=== PATIENT | female | born 1995 | race African-American/Black ===

== ENCOUNTER 2016-11-11 20:33 | Emergency (ER) | payer SELFPAY ==
[~2016-11-11] VITALS: Ht 157.5 cm; Wt 60.8 kg
[~2016-11-11 20:33] MED LIST: BENA25TA8 PO; EPIP0.3I IM; PRED50TA PO; Z.0.NO CURRENT MEDS; ZOFR4TAB3 SL
[2016-11-11 20:40] VITALS: BP 127/81; PULSE 99; RESP 18; O2SAT 99
[2016-11-11] MEDS ORDERED: SODIUM CHLORIDE 0.9% FLUSH 10 ML FLUSH IVF PRN (20:45)
--- NOTE | 2016-11-11 20:50 | PD ---
HPI Chief Complaint: Chest Pain Time Seen by Provider: 20:45 Travel History International Travel<30 days: No Contact w/Intl Traveler<30days: No Traveled to known affect area: No History of Present Illness HPI 21-year-old female with history of anxiety, had been on Vistaril in the past, presents to the ER today because she states that she was going through the [employer] [place] when she felt some tingling coming down her left arm and became anxious, started having chest tightness. She states that the symptoms lasted about 15 minutes and is subsiding. She denies any coughing, fevers, or any other symptoms. She states that she has not had problems of tingling in the left arm in the past. Modifying Factors: None Associated Signs & Symptoms: Left arm tingling, chest tightness, anxiety Risk Factors: History of anxiety attack PFSH Past Medical History Cardiovascular Problems: No Gastrointestinal Disorders: No Genitourinary: No Musculoskeletal: No Neurologic: No Respiratory: No ?: Unknown LMP: "39 days ago, it's irregular" Past Surgical History Other Surgery: No Social History Alcohol Use: Yes Tobacco Use: No Substance Use: Yes Allergies-Medications (Allergen,Severity, Reaction): Coded Allergies: No Known Allergies (Verified , 11/11/16) Reported Meds & Prescriptions Reported Meds & Active Scripts Active No Active Prescriptions or Reported Medications Review of Systems Except as stated in HPI: all other systems reviewed are Neg Physical Exam Narrative GENERAL: Pleasant young female patient currently in mild distress. Mildly anxious. Awake and oriented 3. SKIN: Focused skin assessment warm/dry. HEAD: Atraumatic. Normocephalic. EYES: Pupils equal and round. No scleral icterus. No injection or drainage. ENT: No nasal bleeding or discharge. Mucous membranes pink and moist. NECK: Trachea midline. No JVD. CARDIOVASCULAR: Regular rate and rhythm. No murmur appreciated. Pulses are present and equal bilaterally. RESPIRATORY: No accessory muscle use. Clear to auscultation. Breath sounds equal bilaterally. GASTROINTESTINAL: Abdomen soft, non-tender, nondistended. Hepatic and splenic margins not palpable. MUSCULOSKELETAL: No obvious deformities. No clubbing. No cyanosis. No edema. PSYCHIATRIC: Appropriate mood and affect; insight and judgment normal. NEUROLOGICAL: Awake and alert. Cranial nerves II through XII intact. Motor and sensory grossly within normal limits. Five out of 5 muscle strength in all muscle groups. Normal speech. No pronator drift. Data Data Last Documented VS Vital Signs Date Time Temp Pulse Resp B/P Pulse Ox O2 Delivery O2 Flow Rate FiO2 11/11/16 21:04 91 17 122/76 98 Room Air 111/62 Orders Basic Metabolic Panel (Bmp) (11/11/16 20:45) Ckmb (Isoenzyme) Profile (11/11/16 20:45) Complete Blood Count With Diff (11/11/16 20:45) Magnesium (Mg) (11/11/16 20:45) Troponin I (11/11/16 20:45) Ecg Monitoring (11/11/16 20:45) Bilateral Bp Monitoring (11/11/16 20:45) Iv Access Insert/Monitor (11/11/16 20:45) Oximetry (11/11/16 20:45) Oxygen Administration (11/11/16 20:45) Sodium Chloride 0.9% Flush (Ns Flush) (11/11/16 20:45) Electrocardiogram (11/11/16 20:42) CKMB (11/11/16 20:58) CKMB% (11/11/16 20:58) Labs Laboratory Tests Test 11/11/16 20:58 White Blood Count 9.8 TH/MM3 Red Blood Count 4.43 MIL/MM3 Hemoglobin 13.9 GM/DL Hematocrit 40.6 % Mean Corpuscular Volume 91.6 FL Mean Corpuscular Hemoglobin 31.5 PG Mean Corpuscular Hemoglobin 34.3 % Concent Red Cell Distribution Width 12.4 % Platelet Count 281 TH/MM3 Mean Platelet Volume 7.1 FL Neutrophils (%) (Auto) 64.7 % Lymphocytes (%) (Auto) 27.7 % Monocytes (%) (Auto) 6.0 % Eosinophils (%) (Auto) 0.8 % Basophils (%) (Auto) 0.8 % Neutrophils # (Auto) 6.3 TH/MM3 Lymphocytes # (Auto) 2.7 TH/MM3 Monocytes # (Auto) 0.6 TH/MM3 Eosinophils # (Auto) 0.1 TH/MM3 Basophils # (Auto) 0.1 TH/MM3 CBC Comment DIFF FINAL Differential Comment Sodium Level 140 MEQ/L Potassium Level 3.9 MEQ/L Chloride Level 106 MEQ/L Carbon Dioxide Level 28.8 MEQ/L Anion Gap 5 MEQ/L Blood Urea Nitrogen 8 MG/DL Creatinine 0.88 MG/DL Estimat Glomerular Filtration 96 ML/MIN Rate Random Glucose 91 MG/DL Calcium Level 8.6 MG/DL Magnesium Level 1.7 MG/DL Total Creatine Kinase 112 U/L Creatine Kinase MB LESS THAN 0.5 NG/ML Troponin I LESS THAN 0.02 NG/ML MDM Medical Decision Making Medical Screen Exam Complete: Yes Emergency Medical Condition: Yes Medical Record Reviewed: Yes Interpretation(s) EKG shows NSR, no ST elevation or depression, and no arrhythmias. No significant T-wave inversions. Laboratory Tests Test 11/11/16 20:58 Creatine Kinase MB LESS THAN 0.5 NG/ML (0.5-3.6) Troponin I LESS THAN 0.02 NG/ML (0.02-0.05) Differential Diagnosis Anxiety attack versus dysrhythmias versus electrolyte abnormalities versus ACS Narrative Course EKG did not show any signs of dysrhythmias or ST changes. Patient has no significant metabolic issues. Symptoms seems to have started after she felt some tingling down her left arm, and it appears to have triggered her anxiety attack. Patient has been on Vistaril in the past for anxiety attacks. At This point, I have talked to the patient regarding findings and have offered to admit her to chest pain center should she want further evaluation. She should be in the low risk category considering no other medical history or significant cardiac history. At this point, patient states that she is comfortable with not being admitted but she should follow-up with primary care physician for any ongoing symptoms. Return for any worsening in symptoms as needed. The plan has been discussed with her and she states understanding. Diagnosis Primary Impression: Chest pain Med/Other Pt SpecificInfo: Prescription(s) given Scripts Hydroxyzine Pamoate (Vistaril)25 Mg Cap25 Mg PO Q6H PRN (ANXIETY) #10 CAP Ref 0 Prov:Sunday Gale MD 11/11/16 Disposition: 01 DISCHARGE HOME Condition: Stable Sunday Gale MD Nov 11, 2016 20:50
[2016-11-11 21:03] LABS: AUTOMATED NEUTROPHIL # 6.3 TH/MM3 (1.8-7.7); BASOPHIL # 0.1 TH/MM3 (0-0.2); BASOPHIL % 0.8 % (0.0-2.0); EOSINOPHIL # 0.1 TH/MM3 (0-0.4); EOSINOPHIL % 0.8 % (0.0-4.0); HEMATOCRIT 40.6 % (35.0-46.0); HEMO FLAGS DIFF FINAL; LYMPH % 27.7 % (9.0-44.0); LYMPHOCYTE # 2.7 TH/MM3 (1.0-4.8); MEAN CELL VOLUME 91.6 FL (80.0-100.0); MEAN CORPUSCULAR HEMOGLOBIN 31.5 PG (27.0-34.0); MEAN CORPUSCULAR HGB CONC 34.3 % (32.0-36.0); NEUT % 64.7 % (16.0-70.0); PLATELET COUNT 281 TH/MM3 (150-450); RED BLOOD COUNT 4.43 MIL/MM3 (4.00-5.30); RED CELL DISTRIBUTION WIDTH 12.4 % (11.6-17.2); WHITE BLOOD COUNT 9.8 TH/MM3 (4.0-11.0)
[2016-11-11 21:04] VITALS: BP_SYST 111; BP_SYST 122; BP_DIAS 62; BP_DIAS 76; PULSE 91; RESP 17; O2SAT 98
[2016-11-11 21:11] LABS: CHLORIDE 106 MEQ/L (98-107); POTASSIUM 3.9 MEQ/L (3.5-5.1); SODIUM (NA) 140 MEQ/L (136-145)
[2016-11-11 21:14] LABS: ANION GAP 5 MEQ/L (5-15); BICARBONATE 28.8 MEQ/L (21.0-32.0); BLOOD UREA NITROGEN 8 MG/DL (7-18); MAGNESIUM 1.7 MG/DL (1.5-2.5)
[2016-11-11 21:17] LABS: GLOMERULAR FILTRATION RATE 96 ML/MIN (>89)
[2016-11-11 21:20] LABS: CREATINE KINASE 112 U/L (26-192)
[2016-11-11 21:30] VITALS: BP 128/71; PULSE 86; RESP 16; O2SAT 98
[2016-11-11 21:33] LABS: CKMB LESS THAN 0.5 NG/ML (0.5-3.6)
--- NOTE | 2016-11-11 21:41 | EKG ---
Date Performed: 11/11/2016 Time Performed: 20:42:07 PTAGE: 21 years EKG: Sinus rhythm NORMAL ECG PREVIOUS TRACING : 08/27/2010 23.12 Compared to prior tracing no significant change DOCTOR: Adalid Baron Interpretating Date/Time 11/11/2016 21:40:06
[2016-11-11] MEDS ORDERED: VIST25CA PO (21:57)
[2016-11-11 22:49] VITALS: BP 108/68; PULSE 82; RESP 16; O2SAT 98
--- NOTE | 2016-11-11 23:20 | RADRPT ---
EXAM DATE/TIME: 11/11/2016 23:11 [facility] COMPARISON: No previous studies available for comparison. INDICATIONS : Left upper chest pain. MEDICAL HISTORY : None. SURGICAL HISTORY : None. ENCOUNTER: Initial ACUITY: 1 day PAIN SCORE: 9/10 LOCATION: Left chest FINDINGS: A single view of the chest demonstrates the lungs to be symmetrically aerated without evidence of mas s, infiltrate or effusion. The cardiomediastinal contours are unremarkable. Osseous structures are intact. CONCLUSION: No acute disease. Nick Patterson MD on November 11, 2016 at 23:19 Board Certified Radiologist. This report was verified electronically.
[2016-11-11 23:58] LABS: CREATINE KINASE 118 U/L (26-192)
[2016-11-12 00:10] LABS: CKMB LESS THAN 0.5 NG/ML (0.5-3.6)
[2016-11-12 00:26] VITALS: BP 110/68
--- NOTE | 2016-11-12 13:36 | EKG ---
Date Performed: 11/11/2016 Time Performed: 23:41:04 PTAGE: 21 years EKG: Sinus rhythm NORMAL ECG PREVIOUS TRACING : 11/11/2016 20.42 Compared to prior tracing no significant change DOCTOR: Adalid Baron Interpretating Date/Time 11/12/2016 13:35:27
== END 2016-11-12 00:37 | disposition home or self-care (01) ==
LOC: PHED 20:33
DX: R07.89 Other chest pain (principal); F41.9 Anxiety disorder, unspecified; R20.2 Paresthesia of skin
CPT/HCPCS: 71010; 80048; 82550; 82552; 83735; 84484; 84703; 85025; 93005; 99284

== ENCOUNTER 2017-01-17 08:03 | Emergency (ER) | payer SELFPAY ==
[~2017-01-17] VITALS: Ht 157.5 cm; Wt 60.0 kg
[~2017-01-17 08:03] MED LIST changes: -BENA25TA8 PO; -EPIP0.3I IM; -PRED50TA PO; +VIST25CA PO; -Z.0.NO CURRENT MEDS; -ZOFR4TAB3 SL
[2017-01-17 08:05] VITALS: BP 134/86; PULSE 78; RESP 20; TEMP 97.8; O2SAT 100
--- NOTE | 2017-01-17 08:16 | PD ---
HPI . felt like throat was closing Chief Complaint: Medical Clearance Time Seen by Provider: 08:16 Travel History International Travel<30 days: No Contact w/Intl Traveler<30days: No Traveled to known affect area: No History of Present Illness HPI 22-year-old female here with complaints of feeling like her throat was closing and she had difficulty breathing only when laying down, which started yesterday. Eventually it got better, but then she thinks it happened again today. Patient says that she was laying down and felt like she couldn't catch her breath. She also tells me that yesterday she had one episode of vomiting. She denies any cold or flulike symptoms. She denies any fever or chills. She denies any abdominal pain. She denies any chance of being . She has no other complaints. PFSH Past Medical History Anxiety: Yes Cardiovascular Problems: No Gastrointestinal Disorders: No Genitourinary: No Musculoskeletal: No Neurologic: No Respiratory: No ?: Unknown Past Surgical History Other Surgery: No Social History Alcohol Use: Yes Tobacco Use: No Substance Use: Yes Allergies-Medications (Allergen,Severity, Reaction): Coded Allergies: No Known Allergies (Verified , 01/17/17) Reported Meds & Prescriptions Reported Meds & Active Scripts Active No Active Prescriptions or Reported Medications Review of Systems General / Constitutional: No: Fever Eyes: No: Visual changes HENT: Positive: Other (throat discomfort ), No: Headaches, Vertigo, Sore Throat , Rhinorrhea, Congestion, Neck Stiffness, Neck Pain, Masses Cardiovascular: No: Chest Pain or Discomfort Respiratory: No: Shortness of Breath, Wheezing, Sneezing, Orthopnea Gastrointestinal: Positive: Vomiting (yesterday), No: Nausea, Diarrhea, Abdominal Pain Genitourinary: No: Dysuria Musculoskeletal: No: Pain Skin: No Rash, No Itching Neurologic: No: Weakness Psychiatric: No: Depression Endocrine: No: Polydipsia Hematologic/Lymphatic: No: Easy Bruising Physical Exam Narrative GENERAL: AAO x 3, no acute distress, Well-nourished, well-developed patient. SKIN: Warm and dry. No visible rashes or bruising. HEAD: Normocephalic and atraumatic. EYES: No scleral icterus. No injection or drainage. EOM intact, PERRLA ENT: No nasal drainage noted. Mucous membranes pink. Airway patent. No oropharynx normality. Posterior pharynx without edema, exudates or edema. Uvula is midline. NECK: Supple, trachea midline. No JVD. No lymphadenopathy CARDIOVASCULAR: Regular rate and rhythm without murmurs, gallops, or rubs. RESPIRATORY: Breath sounds equal bilaterally. No accessory muscle use. No rhonchi or rales. GASTROINTESTINAL: Visual inspection normal EXTREMITIES: No cyanosis or edema. BACK: No obvious deformity. NEURO: CN II-12 intact PSYCH: AAO x 3, normal affect. Data Data Last Documented VS Vital Signs Date Time Temp Pulse Resp B/P (MAP) Pulse Ox O2 Delivery O2 Flow Rate FiO2 01/17/17 09:16 01/17/17 08:05 97.8 78 20 100 Room Air Orders Orders Ed Urine Pregnancytest Poc (01/17/17 08:29) MDM Medical Decision Making Medical Screen Exam Complete: Yes Emergency Medical Condition: Yes Medical Record Reviewed: Yes Differential Diagnosis Anxiety, less likely allergic reaction, Narrative Course 22 yr old female here with c/o throat issues while laying down. Exam is unremarkable. I do not suspect any acute allergic reaction. I do not suspect any DVT/PE. She has no edema, not on OCP and does not smoke. I offered benadryl in ED and she declined. Advised if any change of symptoms to return. She did not have any issues while lying down the ED. her vital signs are stable. I advise follow-up with her primary care provider Patient verbalized understanding of instructions, questions were answered, and thanked me for their care. I advised them if their condition worsens, please return to the nearest emergency room for further care. Diagnosis Primary Impression: Throat pain Patient Instructions: General Instructions Additional Instructions: If you develop any difficulty breathing or drooling, go to the nearest emergency department Please return to emergency department if your symptoms return or worsen. Follow up with your primary care provider. Try [id number] Claritin, Zyrtec or Marcy. You can try Benadryl as well. Scripts No Active Prescriptions or Reported Meds Disposition: DISCHARGE HOME Condition: Stable Mayelin Suarez Jan 17, 2017 08:16
== END 2017-01-17 10:23 | disposition home or self-care (01) ==
LOC: NEPD 08:03
DX: R07.0 Pain in throat (principal)
CPT/HCPCS: 84703; 99282

== ENCOUNTER 2017-02-11 00:05 | Emergency (ER) | payer BC ==
[~2017-02-11] VITALS: Ht 157.5 cm; Wt 60.0 kg
[2017-02-11 00:07] VITALS: BP 126/75; PULSE 78; RESP 16; TEMP 97.8; O2SAT 96
[2017-02-11] MEDS ORDERED: AMOX875T PO (00:38)
[2017-02-11] MEDS ORDERED: FLUT50SP EACH NARE (00:38)
--- NOTE | 2017-02-11 00:38 | PD ---
HPI Chief Complaint: Cold / Flu Symptoms Time Seen by Provider: 00:21 Travel History International Travel<30 days: No Contact w/Intl Traveler<30days: No Traveled to known affect area: No History of Present Illness HPI Patient is a 22-year-old female presenting to the emergency department for evaluation of nasal congestion, sinus pressure, sneezing. Pt reports that her symptoms started 3 weeks ago. She has been taking benadryl and mucinex with no improvement. 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 She states that today she started having joint pain. She denies any nausea, vomiting , chest pain, shortness of breath, fevers. She denies any significant PMHx. PFSH Past Medical History Medical History: Denies Significant Hx Anxiety: Yes Cardiovascular Problems: No Gastrointestinal Disorders: No Genitourinary: No Musculoskeletal: No Neurologic: No Respiratory: No ?: Not Past Surgical History Other Surgery: No Social History Alcohol Use: Yes Tobacco Use: No Substance Use: Yes Allergies-Medications (Allergen,Severity, Reaction): Coded Allergies: No Known Allergies (Verified , 02/11/17) Reported Meds & Prescriptions Reported Meds & Active Scripts Active Amoxicillin 875 Mg Tab 875 Mg PO BID 10 Days Fluticasone Nasal [place] 50 Mcg/Act Naspr 50 Mcg EACH NARE BID 50 mcg/spray Review of Systems Except as stated in HPI: all other systems reviewed are Neg HENT: Positive: Headaches, Congestion Cardiovascular: No: Chest Pain or Discomfort Respiratory: Positive: Sneezing, No: Shortness of Breath Physical Exam Narrative GENERAL: Well developed, well-nourished, alert female. Resting comfortably in no acute distress. SKIN: Warm and dry. HEAD: Normocephalic. Tenderness to palpation of ethmoid and maxillary sinuses. EYES: No scleral icterus. No injection or drainage. ENT: Mucosa pink and moist. No erythema or exudates. No uvular edema. No uvular , palatal, or tonsillar deviation. Airway patent. Nasal turbinates appear normal without nasal blood, purulent drainage or septal hematoma. Cobblestone appearance to posterior pharynx. NECK: Supple, trachea midline. No JVD or lymphadenopathy. CARDIOVASCULAR: Regular rate and rhythm without murmurs, gallops, or rubs. RESPIRATORY: Breath sounds equal bilaterally. No accessory muscle use. GASTROINTESTINAL: Abdomen soft, non-tender, nondistended. MUSCULOSKELETAL: No cyanosis, or edema. BACK: Nontender without obvious deformity. No CVA tenderness. Data Data Last Documented VS Vital Signs Date Time Temp Pulse Resp B/P (MAP) Pulse Ox O2 Delivery O2 Flow Rate FiO2 02/11/17 00:07 97.8 78 16 126/75 (92) 96 Room Air MDM Medical Decision Making Medical Screen Exam Complete: Yes Emergency Medical Condition: Yes Interpretation(s) Vital Signs Date Time Temp Pulse Resp B/P (MAP) Pulse Ox O2 Delivery O2 Flow Rate FiO2 02/11/17 00:07 97.8 78 16 126/75 (92) 96 Room Air Differential Diagnosis URI versus allergic rhinitis versus sinusitis versus other Narrative Course Abrasion presented with 3 weeks of upper respiratory symptoms, headache sinus pressure. She is vital signs are stable, she is afebrile. Physical examination is consistent with acute sinusitis, she has trialed minimal conservative management to this point. She was encouraged to obtain over-the- counter Sudafed and use as needed and as directed. She was provided with prescriptions for fluticasone nasal spray as well as amoxicillin. She was advised to complete full course of antibiotics as prescribed. She is advised to follow-up with her primary doctor return to emergency department should she have any new or worsening symptoms. Patient verbalized understanding of instructions. Patient stable for discharge. Diagnosis Primary Impression: Acute sinusitis Qualified Codes: J01.90 - Acute sinusitis, unspecified Referrals: Primary Care Physician 3 days Patient Instructions: General Instructions, Sinusitis (ED) Additional Instructions: Continue symptom management as directed Complete full course of antibiotics as prescribed Follow-up with your primary doctor Return to emergency department for any new or worsening symptoms Med/Other Pt SpecificInfo: Prescription(s) given Scripts Amoxicillin (Amoxicillin) 875 Mg Tab 875 MG PO BID for Infection for 10 Days, #20 TAB 0 Refills Prov: Paradise Lynch 02/11/17 Fluticasone Nasal [place] (Fluticasone Nasal [place]) 50 Mcg/Act Naspr 50 MCG EACH NARE BID for Allergy Management, #1 BOTTLE 0 Refills 50 mcg/spray Prov: Paradise Lynch 02/11/17 Disposition: 01 DISCHARGE HOME Condition: Stable Paradise Lynch Feb 11, 2017 00:38
== END 2017-02-11 03:33 | disposition home or self-care (01) ==
LOC: NEPD 00:05
DX: J01.90 Acute sinusitis, unspecified (principal)
CPT/HCPCS: 99283

== ENCOUNTER 2017-03-10 03:43 | Emergency (ER) | payer BC ==
[~2017-03-10] VITALS: Ht 157.5 cm; Wt 58.0 kg
[~2017-03-10 03:43] MED LIST changes: +AMOX875T PO; +FLUT50SP EACH NARE; -VIST25CA PO
[2017-03-10 03:47] VITALS: BP 146/90; PULSE 97; RESP 16; TEMP 98.3; O2SAT 97
[2017-03-10] MEDS ORDERED: SODIUM CHLOR 0.9% 1000 ML INJ 1,000 ML IV ONE (05:43)
[2017-03-10] MEDS ORDERED: PANTOPRAZOLE SODIUM 40 MG VIAL IV PUSH ONE (05:45)
[2017-03-10] MEDS ORDERED: SODIUM CHLORIDE 0.9% FLUSH 10 ML FLUSH IVF PRN (05:45)
[2017-03-10 06:39] LABS: AUTOMATED NEUTROPHIL # 6.3 TH/MM3 (1.8-7.7); BASOPHIL # 0.1 TH/MM3 (0-0.2); BASOPHIL % 0.6 % (0.0-2.0); EOSINOPHIL # 0.1 TH/MM3 (0-0.4); EOSINOPHIL % 0.9 % (0.0-4.0); HEMATOCRIT 41.3 % (35.0-46.0); HEMO FLAGS DIFF FINAL; LYMPH % 30.6 % (9.0-44.0); LYMPHOCYTE # 3.1 TH/MM3 (1.0-4.8); MEAN CELL VOLUME 93.6 FL (80.0-100.0); MEAN CORPUSCULAR HEMOGLOBIN 32.1 PG (27.0-34.0); MEAN CORPUSCULAR HGB CONC 34.3 % (32.0-36.0); MONO % 6.6 % (0.0-8.0); NEUT % 61.3 % (16.0-70.0); PLATELET COUNT 323 TH/MM3 (150-450); RED BLOOD COUNT 4.42 MIL/MM3 (4.00-5.30); RED CELL DISTRIBUTION WIDTH 12.6 % (11.6-17.2); WHITE BLOOD COUNT 10.3 TH/MM3 (4.0-11.0)
[2017-03-10 06:44] LABS: BICARBONATE 25.7 MEQ/L (21.0-32.0); POTASSIUM 3.7 MEQ/L (3.5-5.1)
--- NOTE | 2017-03-10 06:52 | RADRPT ---
EXAM DATE/TIME: 03/10/2017 06:37 [facility] COMPARISON: No previous studies available for comparison. INDICATIONS : Chest discomfort from vomiting after food poisoning. MEDICAL HISTORY : None. SURGICAL HISTORY : None. ENCOUNTER: Initial ACUITY: 1 day PAIN SCORE: 0/10 LOCATION: Bilateral chest FINDINGS: PA and lateral views of the chest demonstrate the lungs to be symmetrically aerated without evidence of mass, infiltrate or effusion. The cardiomediastinal contours are unremarkable. Osseous structure s are intact. CONCLUSION: 1. No acute cardiopulmonary disease. Derrick Polanco MD on March 10, 2017 at 6:49 Board Certified Radiologist. This report was verified electronically.
[2017-03-10 07:07] LABS: BLOOD, URINE NEG (NEG); COMMENT (UR) CULT NOT INDICATED; CULTURE IF INDICATED CULT NOT INDICATED; GLUCOSE,URINE NEG (NEG); KETONE, URINE NEG (NEG); MUCUS URINE FEW /lpf (OCC); NITRITE,URINE NEG (NEG); SQUAMOUS EPITHELIAL CELL URINE 2 /hpf (0-5); URINE COLOR YELLOW (YELLW/STRAW)
[2017-03-10] MEDS ORDERED: ZOFR4TAB3 SL (07:21)
--- NOTE | 2017-03-10 07:21 | PD ---
HPI Chief Complaint: GI Complaint Time Seen by Provider: 05:43 Travel History International Travel<30 days: No Contact w/Intl Traveler<30days: No Traveled to known affect area: No History of Present Illness HPI 22-year-old female presents to the emergency department for complaint of nausea and vomiting after eating out at a restaurant around 2 AM. Patient states she vomited so forcefully she didn't experience some pain in her upper back. Patient states that depending on her position she can reproduce the pain in her upper back. Patient has taken no medications for her discomfort. Patient denies acetaminophen or Tylenol use denies Advil/Aleve/ibuprofen use. Patient rates pain 5/10 intensity. Patient states nausea has dissipated and there is been no hematemesis coffee-ground emesis or bilious emesis. Patient denies focal abdominal pain. Patient has had no melena or hematochezia. Significant other at bedside and has had no similar symptoms but did not eat the exact food that the patient consumed. Patient otherwise has had no known dietary indiscretion well water ingestion or foreign travel. Patient is otherwise in good health takes no medications on a daily basis. Last period was normal for her and denies . [facility] Past Medical History Narrative Medical Anxiety, no surgeries, no tobacco use; nursing notes reviewed Anxiety: Yes Cardiovascular Problems: No Diminished Hearing: No Gastrointestinal Disorders: No Genitourinary: No Musculoskeletal: No Neurologic: No Respiratory: No ?: Unknown LMP: 02/24/17 Past Surgical History Surgical History: No Previous Surgery Other Surgery: No Social History Alcohol Use: Yes (socially) Tobacco Use: No Substance Use: No Allergies-Medications (Allergen,Severity, Reaction): Coded Allergies: No Known Allergies (Verified Adverse Reaction, Unknown, 03/10/17) Reported Meds & Prescriptions Reported Meds & Active Scripts Active Zofran Odt (Ondansetron Odt) 4 Mg Tab 4 Mg SL Q6HR PRN Review of Systems Except as stated in HPI: all other systems reviewed are Neg General / Constitutional: No: Fever, Chills HENT: No: Congestion Cardiovascular: No: Chest Pain or Discomfort Respiratory: No: Shortness of Breath Gastrointestinal: Positive: Nausea, Vomiting, No: Diarrhea, Abdominal Pain, Hematemesis, Hematochezia Genitourinary: No: Urgency, Frequency, Dysuria, Flank Pain Musculoskeletal: Positive: Myalgias, Arthralgias, Pain Skin: No Rash (her back after vomiting) Neurologic: No: Weakness, Dizziness Psychiatric: No: Anxiety Endocrine: No: Heat Intolerance Hematologic/Lymphatic: No: Easy Bruising Physical Exam Narrative GENERAL: Well-developed well-nourished female in no acute distress no respiratory distress SKIN: Warm and dry. HEAD: Normocephalic. EYES: No scleral icterus. No injection or drainage. NECK: Supple, trachea midline. No JVD or lymphadenopathy. CARDIOVASCULAR: Regular rate and rhythm without murmurs, gallops, or rubs. RESPIRATORY: Breath sounds equal bilaterally. No accessory muscle use. GASTROINTESTINAL: Abdomen soft, non-tender, nondistended. MUSCULOSKELETAL: No cyanosis, or edema. Radial and dorsalis pedis pulses 2+ to palpation bilaterally BACK: Nontender without obvious deformity. No CVA tenderness. Data Data Last Documented VS Vital Signs Date Time Temp Pulse Resp B/P (MAP) Pulse Ox O2 Delivery O2 Flow Rate FiO2 03/10/17 03:47 98.3 97 16 146/90 (108) 97 Orders Orders Complete Blood Count With Diff (03/10/17 05:43) Basic Metabolic Panel (Bmp) (03/10/17 05:43) Urinalysis - C+S If Indicated (03/10/17 05:43) Iv Access Insert/Monitor (03/10/17 05:43) Ecg Monitoring (03/10/17 05:43) Oximetry (03/10/17 05:43) Pantoprazole Inj (Protonix Inj) (03/10/17 05:45) Sodium Chlor 0.9% 1000 Ml Inj (Ns 1000 M (03/10/17 05:43) Sodium Chloride 0.9% Flush (Ns Flush) (03/10/17 05:45) Chest, Pa & Lat (03/10/17 05:43) Ed Urine Pregnancytest Poc (03/10/17 05:43) Ed Discharge Order (03/10/17 07:19) Labs Laboratory Tests Test 03/10/17 06:20 03/10/17 06:40 White Blood Count 10.3 TH/MM3 Red Blood Count 4.42 MIL/MM3 Hemoglobin 14.2 GM/DL Hematocrit 41.3 % Mean Corpuscular Volume 93.6 FL Mean Corpuscular Hemoglobin 32.1 PG Mean Corpuscular Hemoglobin Concent 34.3 % Red Cell Distribution Width 12.6 % Platelet Count 323 TH/MM3 Mean Platelet Volume 6.9 FL Neutrophils (%) (Auto) 61.3 % Lymphocytes (%) (Auto) 30.6 % Monocytes (%) (Auto) 6.6 % Eosinophils (%) (Auto) 0.9 % Basophils (%) (Auto) 0.6 % Neutrophils # (Auto) 6.3 TH/MM3 Lymphocytes # (Auto) 3.1 TH/MM3 Monocytes # (Auto) 0.7 TH/MM3 Eosinophils # (Auto) 0.1 TH/MM3 Basophils # (Auto) 0.1 TH/MM3 CBC Comment DIFF FINAL Differential Comment Blood Urea Nitrogen 8 MG/DL Creatinine 0.70 MG/DL Random Glucose 96 MG/DL Calcium Level 9.2 MG/DL Sodium Level 140 MEQ/L Potassium Level 3.7 MEQ/L Chloride Level 106 MEQ/L Carbon Dioxide Level 25.7 MEQ/L Anion Gap 8 MEQ/L Estimat Glomerular Filtration Rate 124 ML/MIN Urine Color YELLOW Urine Turbidity CLEAR Urine pH 7.0 Urine Specific [place] 1.020 Urine Protein NEG mg/dL Urine Glucose (UA) NEG mg/dL Urine Ketones NEG mg/dL Urine Occult Blood NEG Urine Nitrite NEG Urine Bilirubin NEG Urine Urobilinogen 2.0 MG/DL Urine Leukocyte Esterase SMALL Urine RBC 1 /hpf Urine WBC 3 /hpf Urine Squamous Epithelial Cells 2 /hpf Urine Mucus FEW /lpf Microscopic Urinalysis Comment CULT NOT INDICATED MDM Medical Decision Making Medical Screen Exam Complete: Yes Emergency Medical Condition: Yes Medical Record Reviewed: Yes Interpretation(s) Peyhe-du-hpbe hCG: Negative Last Impressions Chest X-Ray 03/10/17 0543 Signed Impressions: Service Date/Time: Sunday, March 10, 2017 06:37 - CONCLUSION: 1. No acute cardiopulmonary disease. Derrick Polanco MD CBC & BMP Diagram 03/10/17 06:20 Calcium Level 9.2 Vital Signs Date Time Temp Pulse Resp B/P (MAP) Pulse Ox O2 Delivery O2 Flow Rate FiO2 03/10/17 03:47 98.3 97 16 146/90 (108) 97 Differential Diagnosis Gastritis gastroenteritis musculoskeletal pain also consider biliary colic cholecystitis pneumomediastinum pneumothorax PE Narrative Course IV access obtained specimen collected and sent for resulting patient administered IV fluid bolus along with Zofran [id number] hCG is negative Lab values found to be in normal range and PA and lateral chest x-ray reveals no acute abnormality Patient resting comfortably no further nausea feels well-hydrated and desirous of being discharged home Patient is to follow-up with her primary care provider follow clear liquid diet for next 12-24 hours advance diet as tolerated she needs acetaminophen avoiding nonsteroidal anti-inflammatory medications over the next 48 hours for any symptoms of discomfort or for fever 100.4F or greater Return the emergency department for any concerns No work times one day Diagnosis Primary Impression: Gastroenteritis Additional Impression: Vomiting Referrals: Primary Care Physician Patient Instructions: General Instructions Departure Forms: Tests/Procedures, Work Release Special Instructions: No work times one day Additional Instructions: Increase fluid hydration Follow clear liquid diet for next 12-24 hours advance as tolerated Takes Zofran as prescribed as needed for nausea and/or vomiting Take acetaminophen/Tylenol as needed for fever 100.4F or greater Follow-up with primary care provider Return to emergency for any concerns or change in condition Med/Other Pt SpecificInfo: Prescription(s) given Scripts Ondansetron Odt (Zofran Odt) 4 Mg Tab 4 MG SL Q6HR Y for Nausea/Vomiting, #10 TAB 0 Refills Prov: Renee Peralta MD 03/10/17 Disposition: 01 DISCHARGE HOME Condition: Stable Renee Peralta MD Mar 10, 2017 07:21
== END 2017-03-10 08:24 | disposition home or self-care (01) ==
LOC: NEPC 03:43
DX: K52.9 Noninfective gastroenteritis and colitis, unspecified (principal); R11.2 Nausea with vomiting, unspecified; M54.6 Pain in thoracic spine
CPT/HCPCS: 71020; 80048; 81001; 84703; 85025; 96374; 99284; C9113; J7030

== ENCOUNTER 2017-05-14 14:06 | Emergency (ER) | payer BC ==
[~2017-05-14 14:06] MED LIST changes: -AMOX875T PO; -FLUT50SP EACH NARE; +ZOFR4TAB3 SL
[2017-05-14 14:08] VITALS: BP 148/82; PULSE 104; RESP 16; TEMP 97.7; O2SAT 98
[2017-05-14] MEDS ORDERED: SODIUM CHLORIDE 0.9% FLUSH 10 ML FLUSH IVF PRN (17:30)
--- NOTE | 2017-05-14 17:38 | PD ---
HPI Chief Complaint: Cold / Flu Symptoms Time Seen by Provider: 17:20 Travel History International Travel<30 days: No Contact w/Intl Traveler<30days: No Traveled to known affect area: No History of Present Illness HPI 22-year-old female presents to the emergency department with multiple complaints. She is complaining of numbness and tingling to her scalp. She had her hair done [place] last night and does not think that is related to that. She is also complaining of bilateral ear pressure and a scratchy sensation in her throat since last night. She said she had headache last night , but none today. Reports fever of 101.0 last night, but none today. Reports abdominal pain yesterday, but none today. Reports feeling fatigued. Reports that she did not eat yesterday, but ate today. Denies cough, nasal congestion, cough. Denies vomiting, diarrhea. Denies dysuria. Denies chest pain, shortness of breath. Has not taken any medications or tried any treatments to alleviate her symptoms. Symptoms are mild in severity. No known relieving or aggravating factors. No known allergies. Primary care provider isn't [place]. Denies significant past medical history. Has no medical complaints. No other modifying factors or associated signs and symptoms. PFSH Past Medical History Anxiety: Yes Cardiovascular Problems: No Diminished Hearing: No Gastrointestinal Disorders: No Genitourinary: No Musculoskeletal: No Neurologic: No Respiratory: No ?: Not LMP: 04/30/17 Past Surgical History Other Surgery: No Social History Alcohol Use: Yes (socially) Tobacco Use: No Substance Use: No Allergies-Medications (Allergen,Severity, Reaction): Coded Allergies: No Known Allergies (Verified Adverse Reaction, Unknown, 05/14/17) Reported Meds & Prescriptions Reported Meds & Active Scripts Active Review of Systems Except as stated in HPI: all other systems reviewed are Neg Physical Exam Narrative GENERAL: Well-nourished, well-developed black female patient, in no acute distress; afebrile, nontoxic-appearing SKIN: Warm and dry. No rash. HEAD: Atraumatic. Normocephalic. EYES: Pupils equal and round. No scleral icterus. No injection or drainage. ENT: Mucosa pink and moist. No erythema or exudates. No uvular edema. No uvular , palatal, or tonsillar deviation. Airway patent. EARS: Bilateral pinnae and external canals appear within normal limits. Bilateral tympanic membranes without erythema, dullness or perforation. NECK: Trachea midline. No lymphadenopathy. CARDIOVASCULAR: Regular rate and rhythm. No murmur appreciated. RESPIRATORY: No accessory muscle use. Clear to auscultation. Breath sounds equal bilaterally. No retractions or tachypnea. GASTROINTESTINAL: Abdomen soft, non-tender, nondistended. Hepatic and splenic margins not palpable. Bowel sounds are active 4 quadrants. MUSCULOSKELETAL: No obvious deformities. No clubbing. No cyanosis. No edema. NEUROLOGICAL: Awake and alert. Oriented 3. No obvious cranial nerve deficits. Motor grossly within normal limits. Normal speech. Moves all extremities. 5/5 strength to all extremities. PSYCHIATRIC: Appropriate mood and affect; insight and judgment normal. Data Data Last Documented VS Vital Signs Date Time Temp Pulse Resp B/P (MAP) Pulse Ox O2 Delivery O2 Flow Rate FiO2 05/14/17 14:08 97.7 104 16 148/82 (104) 98 Orders Orders Influenzae A/B Antigen (05/14/17 17:30) Group A Rapid Strep Screen (05/14/17 17:30) Sodium Chloride 0.9% Flush (Ns Flush) (05/14/17 17:30) Strep Culture (Group A) (05/14/17 17:50) Ed Discharge Order (05/14/17 18:33) MDM Medical Decision Making Medical Screen Exam Complete: Yes Emergency Medical Condition: Yes Medical Record Reviewed: Yes Differential Diagnosis Throat pain, seasonal allergies, scalp numbness and tingling, fatigue, pharyngitis, influenza Narrative Course 22-year-old female presents emergency Department with multiple complaints that were occurring yesterday, but not today. She is afebrile and nontoxic- appearing. Reports MAXIMUM TEMPERATURE of 101.0 last night. She is complaining of throat pain and bilateral ear pressure currently. Physical exam is unremarkable. Rapid strep and influenza ordered. 1830: Microbiology called stating they needed another flu sample. The patient does not want to provide no other specimen. Rapid strep negative. Instructed patient to follow up with primary care provider. Patient verbalizes understanding and agreement with treatment plan. Patient is medically cleared and stable for discharge. Discussed reasons to return to the emergency department. Patient agrees with treatment plan. The patients vital signs are stable and the patient is stable for outpatient follow-up and treatment. Patient discharged home, stable and in no acute distress. Diagnosis Primary Impression: Throat irritation Additional Impressions: Fatigue Qualified Codes: R53.83 - Other fatigue Numbness and tingling Referrals: Primary Care Physician Patient Instructions: Allergies (ED), Fatigue (ED), General Instructions Additional Instructions: Ibuprofen or Tylenol as instructed and as needed for fever/pain [id number]-dxarczp cough and cold medications as directed and as needed for symptom management Trbi-hgz-[id number] antihistamines as directed and as needed for symptom management Get plenty of sleep/rest Drink plenty of fluids to prevent dehydration; popsicles and Gatorade Use an air humidifier/turn off ceiling fans Follow-up with primary care provider Return immediately to the emergency department with worsening of symptoms Med/Other Pt SpecificInfo: No Change to Meds, No Meds Exist/No RX given Disposition: 01 DISCHARGE HOME Condition: Stable Meryl Pabon May 14, 2017 17:38
== END 2017-05-14 18:57 | disposition home or self-care (01) ==
LOC: NEPK 14:06
DX: J02.9 Acute pharyngitis, unspecified (principal); R53.83 Other fatigue; R20.0 Anesthesia of skin; R20.2 Paresthesia of skin; R51 Headache; R10.9 Unspecified abdominal pain; F41.9 Anxiety disorder, unspecified
CPT/HCPCS: 87081; 87880; 99283

== ENCOUNTER 2017-05-18 19:23 | Emergency (ER) | payer BC ==
[~2017-05-18] VITALS: Ht 157.5 cm; Wt 61.4 kg
[2017-05-18 19:24] VITALS: BP 142/93; PULSE 114; RESP 14; TEMP 99.1; O2SAT 100
[2017-05-18] MEDS ORDERED: PROM12.54 PO (22:22)
--- NOTE | 2017-05-18 22:43 | PD ---
HPI Chief Complaint: Chest Pain Time Seen by Provider: 22:19 Travel History International Travel<30 days: No Contact w/Intl Traveler<30days: No Traveled to known affect area: No History of Present Illness HPI 22yo F with no significant PMH presents to the ED with c/o episode of palpitations, chest pain and feeling like she couldnt breath today. Said it felt like a panic attack which she has had before. Pt has been having throat pain for 4 days and intermittent fever along with cough. Pt was evaluated here 05/14/16 and refused to redo influenza test. Negative strep. Denies any more chest pain, sob, n/v, abdominal pain, focal weakness or numbness. PFSH Past Medical History Anxiety: Yes Cardiovascular Problems: No Diminished Hearing: No Gastrointestinal Disorders: No Genitourinary: No Musculoskeletal: No Neurologic: No Respiratory: No ?: Not LMP: 04/30/2017 Past Surgical History Other Surgery: No Social History Alcohol Use: Yes (socially) Tobacco Use: No Substance Use: No Allergies-Medications (Allergen,Severity, Reaction): Coded Allergies: No Known Allergies (Verified Adverse Reaction, Unknown, 05/14/17) Reported Meds & Prescriptions Reported Meds & Active Scripts Active Robitussin Lingering Cold (Dextromethorphan HBr) 15 Mg Cap 30 Mg PO Q8H PRN 3 Days Tylenol (Acetaminophen) 325 Mg Tab 650 Mg PO Q6H PRN Reported Promethazine (Promethazine HCl) 12.5 Mg Tab 25 Mg PO Q4H PRN Review of Systems Except as stated in HPI: all other systems reviewed are Neg Physical Exam Narrative GENERAL: 22yo F not in distress. SKIN: Focused skin assessment warm/dry. HEAD: Atraumatic. Normocephalic. EYES: Pupils equal and round. No scleral icterus. No injection or drainage. ENT: No nasal bleeding or discharge. Throat: Uvula midline. No tonsillar exudates. NECK: Trachea midline. No JVD. CARDIOVASCULAR: Regular rate and rhythm. No murmur appreciated. RESPIRATORY: No accessory muscle use. Clear to auscultation. Breath sounds equal bilaterally. GASTROINTESTINAL: Abdomen soft, non-tender, nondistended. MUSCULOSKELETAL: No obvious deformities. No clubbing. No cyanosis. No edema. NEUROLOGICAL: Awake and alert. No obvious cranial nerve deficits. Motor grossly within normal limits. Normal speech. PSYCHIATRIC: Appropriate mood and affect; insight and judgment normal. Data Data Last Documented VS Vital Signs Date Time Temp Pulse Resp B/P (MAP) Pulse Ox O2 Delivery O2 Flow Rate FiO2 05/19/17 00:10 98.1 79 16 109/64 (79) 100 Room Air Orders Orders Basic Metabolic Panel (Bmp) (05/18/17 22:32) Complete Blood Count With Diff (05/18/17 22:32) Troponin I (05/18/17 22:32) Chest, Single Ap (05/18/17 22:32) Thyroid Stimulating Hormone (05/18/17 22:32) Influenzae A/B Antigen (05/18/17 22:32) Guaifenesin Liq (Robitussin Liq) (05/18/17 22:45) Acetaminophen (Tylenol) (05/19/17 00:45) Ed Discharge Order (05/19/17 00:33) Labs Laboratory Tests Test 05/18/17 23:10 White Blood Count 13.0 TH/MM3 Red Blood Count 4.56 MIL/MM3 Hemoglobin 14.2 GM/DL Hematocrit 42.7 % Mean Corpuscular Volume 93.6 FL Mean Corpuscular Hemoglobin 31.2 PG Mean Corpuscular Hemoglobin Concent 33.3 % Red Cell Distribution Width 12.8 % Platelet Count 296 TH/MM3 Mean Platelet Volume 6.7 FL Neutrophils (%) (Auto) 77.1 % Lymphocytes (%) (Auto) 17.2 % Monocytes (%) (Auto) 4.2 % Eosinophils (%) (Auto) 0.9 % Basophils (%) (Auto) 0.6 % Neutrophils # (Auto) 10.0 TH/MM3 Lymphocytes # (Auto) 2.2 TH/MM3 Monocytes # (Auto) 0.5 TH/MM3 Eosinophils # (Auto) 0.1 TH/MM3 Basophils # (Auto) 0.1 TH/MM3 CBC Comment DIFF FINAL Differential Comment Blood Urea Nitrogen 5 MG/DL Creatinine 0.77 MG/DL Random Glucose 95 MG/DL Calcium Level 8.7 MG/DL Sodium Level 140 MEQ/L Potassium Level 4.1 MEQ/L Chloride Level 106 MEQ/L Carbon Dioxide Level 28.8 MEQ/L Anion Gap 5 MEQ/L Estimat Glomerular Filtration Rate 111 ML/MIN Troponin I LESS THAN 0.02 NG/ML Thyroid Stimulating Hormone 3rd Gen 0.689 uIU/ML [facility] Medical Decision Making Medical Screen Exam Complete: Yes Emergency Medical Condition: Yes Interpretation(s) EKG: NSR 81bpm. Normal axis. No ST segment elevation or depression. Differential Diagnosis Viral syndrome vs. influenza vs. pneumonia Narrative Course 22yo F with an episode of atypical chest pain that sounded like a panic attack. Said she had palpitations, midsternal chest pain, nervousness that lasted about 20 minutes while sitting down today. Pt has no cardiac risk factors. Denies any cocaine use or smoking. Currently has no chest pain or sob. Labs reviewed, mild leukocytosis at 13. Troponin negative. TSH normal. Influenza negative. Pt given robitussin and acetaminophen. Pt reevaluated at bedside and feels better. HR is now 79bpm. Diagnosis Primary Impression: Anxiety Patient Instructions: General Instructions Departure Forms: Tests/Procedures Additional Instructions: Please follow up with your primary care physician in 3-7 days. Return to the ED if symptoms worsen. Med/Other Pt SpecificInfo: Prescription(s) given Scripts Dextromethorphan (Robitussin Lingering Cold) 15 Mg Cap 30 MG PO Q8H Y for COUGH for 3 Days, #18 CAP 0 Refills Prov: Tiffany Ames DO 05/19/17 Acetaminophen (Tylenol) 325 Mg Tab 650 MG PO Q6H Y for PAIN SCALE 1 TO 4, #20 TAB 0 Refills Prov: Tiffany Ames DO 05/19/17 Disposition: 01 DISCHARGE HOME Condition: Stable Tiffany Ames DO May 18, 2017 22:43
[2017-05-18] MEDS ORDERED: guaiFENesin SOLUTION 200 MG/10 ML CUP PO ONE (22:45)
--- NOTE | 2017-05-18 22:50 | RADRPT ---
EXAM DATE/TIME: 05/18/2017 22:40 [facility] COMPARISON: CHEST SINGLE AP, November 11, 2016, 23:11. INDICATIONS : Chest pain, cough, and shortness of breath. MEDICAL HISTORY : None. SURGICAL HISTORY : None. ENCOUNTER: Initial ACUITY: 3 days PAIN SCORE: 10/10 LOCATION: chest FINDINGS: Single AP view of the chest. The lungs are clear. Cardiomediastinal silhouette within normal limits. No evidence of pleural effusion or pneumothorax. CONCLUSION: No acute cardiopulmonary disease identified. Darren Lopez MD on May 18, 2017 at 22:47 Board Certified Radiologist. This report was verified electronically.
[2017-05-18 23:22] LABS: BASOPHIL # 0.1 TH/MM3 (0-0.2); BASOPHIL % 0.6 % (0.0-2.0); EOSINOPHIL # 0.1 TH/MM3 (0-0.4); EOSINOPHIL % 0.9 % (0.0-4.0); HEMATOCRIT 42.7 % (35.0-46.0); HEMOGLOBIN 14.2 GM/DL (11.6-15.3); LYMPH % 17.2 % (9.0-44.0); LYMPHOCYTE # 2.2 TH/MM3 (1.0-4.8); MEAN CELL VOLUME 93.6 FL (80.0-100.0); MEAN CORPUSCULAR HEMOGLOBIN 31.2 PG (27.0-34.0); MEAN CORPUSCULAR HGB CONC 33.3 % (32.0-36.0); MEAN PLATELET VOLUME 6.7 FL (7.0-11.0); MONO % 4.2 % (0.0-8.0); MONOCYTE # 0.5 TH/MM3 (0-0.9); NEUT % 77.1 % (16.0-70.0); PLATELET COUNT 296 TH/MM3 (150-450); RED BLOOD COUNT 4.56 MIL/MM3 (4.00-5.30); RED CELL DISTRIBUTION WIDTH 12.8 % (11.6-17.2)
[2017-05-18 23:43] LABS: BICARBONATE 28.8 MEQ/L (21.0-32.0); BLOOD UREA NITROGEN 5 MG/DL (7-18); CALCIUM 8.7 MG/DL (8.5-10.1); CHLORIDE 106 MEQ/L (98-107); CREATININE 0.77 MG/DL (0.50-1.00); GLOMERULAR FILTRATION RATE 111 ML/MIN (>89); GLUCOSE,RANDOM 95 MG/DL (74-106); SODIUM (NA) 140 MEQ/L (136-145)
[2017-05-18 23:48] LABS: TROPONIN I LESS THAN 0.02 NG/ML (0.02-0.05)
[2017-05-19 00:10] VITALS: BP 109/64; PULSE 79; RESP 16; TEMP 98.1; O2SAT 100
[2017-05-19] MEDS ORDERED: ROBICAP2 PO (00:29)
[2017-05-19] MEDS ORDERED: TYLE325T PO (00:29)
[2017-05-19] MEDS ORDERED: ACETAMINOPHEN 325 MG TAB PO ONE (00:45)
--- NOTE | 2017-05-19 15:00 | EKG ---
Date Performed: 05/18/2017 Time Performed: 22:21:06 PTAGE: 22 years EKG: Sinus rhythm WITH SINUS ARRHYTHMIA NORMAL ECG PREVIOUS TRACING : 11/11/2016 23.41 Since previous tracing, no significant change noted DOCTOR: Herson Botello Interpretating Date/Time 05/19/2017 14:58:35
== END 2017-05-19 01:02 | disposition home or self-care (01) ==
LOC: NEPD 19:23
DX: F41.9 Anxiety disorder, unspecified (principal)
CPT/HCPCS: 71045; 80048; 84443; 84484; 85025; 87804; 93005; 99285